=== PATIENT | male | born 1945 | race Caucasian/White ===

== ENCOUNTER 2025-03-01 09:34 | Outpatient (AMB) | payer OTHER, SELFPAY ==
[2025-03-01 10:14] VITALS: BP 136/60; PULSE 59; TEMP 36.6; O2SAT 97; BMI 30.8
--- NOTE | 2025-03-01 10:14 | AM.OFFWIN_ITS ---
Intake Vital Signs 03/01/25 10:14 Height 5 ft 5 in Weight 185 lb BMI 30.8 BP 136/60 Blood Pressure Location Lt brachial Position Sitting Pulse 59 Pulse Source Pulse Oximeter Temp 97.9 F Temp Source Oral Pulse Oximetry (%) 97 Oxygen Delivery Method Room Air Intake Visit Reasons: BANDER HAND ?LT eye infection Intake Note: presents with left eye redness, weeping, crusted for 4-5 days Allergies lisinopril Adverse Reaction (Mild, Verified 03/01/25 10:15) dry cough Medication List - Last Reconciled 03/01/25 by Thea Nick MD atorvastatin 20 mg PO DAILY coenzyme Q10 100 mg PO DAILY doxazosin mg PO finasteride 5 mg PO DAILY levetiracetam 500 mg PO BID losartan 100 mg PO DAILY metoprolol succinate ER 100 mg PO DAILY rivaroxaban (Xarelto) 20 mg PO DAILY turmeric mg PO HPI BANDER HAND ?LT eye infection HPI Details History - The patient is an 79-year-old male pre senting with conjunctivitis and dermatitis symptoms. - Patient reports left eye redness and d ischarge progressively worsening over three to four days, with no inciting event identified. - Patient denies any other underlying ey e conditions, apart from the current conjunctivitis symptoms. - Both ears are affected by a rash that becomes crusty; the patient relates the onset to several weeks before the visit. - Patient has a history of eczema when l iving in [place] about six or seven years ago and was advised by a superintendent electric power to use Cetaphil soap and Head & Shoulders shampoo. - Current complaints include the rash on both ears, potentially linked to possible contact dermatitis or allergies. - Patient has hearing aids and confirms obtaining new aids four years ago; no recent changes have been reported. Medical History: - Eczema history, managed with Cetaphil soap and Head & Shoulders shampoo. - Seborrheic dermatitis, managed with He ad & Shoulders initially, and advised to use Nizoral shampoo. Social History: - Patient uses hearing aids, obtained fo ur years ago, for auditory assistance. Problem List - Conjunctivitis - Dermatitis - Eczema - Seborrheic Dermatitis Patient Instructions - Use prescribed steroid cream on ears a t night when hearing aids are removed. - Apply a small amount inside the ear us ing a fingertip. - Use Nizoral shampoo instead of Head & Shoulders for scalp condition. - Obtain prescribed eye drops and cream from the pharmacy. Review of Systems - General: No fever no chills - Neurological: No headaches no dizziness - Ear nose throat: No sore throat no hearing difficulty no ear pain - Cardiovascular: No syncope, no chest pain, no palpitations - Gastrointestinal: No nausea vomiting or diarrhea Physical Exam General: No acute distress HEENT: Conjunctivitis in the left eye MARTHA EOMI, both ears with crusty rash, possibly due to contact dermatitis, hearing aids are in Neck: Supple Respiratory system: Able to talk in full sentences Gastrointestinal: No pain Extremities: No new findings BARIATRIC NURSE: Alert awake oriented x3 Skin: normal turgor Physical Exam Vital Signs: Last Vital Signs Temp 97.9 F 03/01/25 10:14 Pulse 59 03/01/25 10:14 BP 136/60 03/01/25 10:14 Pulse Ox 97 03/01/25 10:14 Oxygen Delivery Method Room Air 03/01/25 10:14 BMI result Body Mass Index 30.8 Assessment & Plan Assessment & Plan (1) Conjunctivitis, left eye: Code(s): H10.9 - Unspecified conjunctivitis (2) Seborrheic dermatitis: Code(s): L21.9 - Seborrheic dermatitis, unspecified Plan History - The patient is an 79-year-old male presenting with conjunctivitis and dermatitis symptoms. - Patient reports left eye redness and discharge progressively worsening over three to four days, with no inciting event identified. - Patient denies any other underlying eye conditions, apart from the current conjunctivitis symptoms. - Both ears are affected by a rash that becomes crusty; the patient relates the onset to several weeks before the visit. - Patient has a history of eczema when living in [place] about six or seven years ago and was advised by a superintendent electric power to use Cetaphil soap and Head & Shoulders shampoo. - Current complaints include the rash on both ears, potentially linked to possible contact dermatitis or allergies. - Patient has hearing aids and confirms obtaining new aids four years ago; no recent changes have been reported. Medical History: - Eczema history, managed with Cetaphil soap and Head & Shoulders shampoo. - Seborrheic dermatitis, managed with Head & Shoulders initially, and advised to use Nizoral shampoo. Social History: - Patient uses hearing aids, obtained four years ago, for auditory assistance. Problem List - Conjunctivitis - Dermatitis - Eczema - Seborrheic Dermatitis Patient Instructions - Use prescribed steroid cream on ears at night when hearing aids are removed. - Apply a small amount inside the ear using a fingertip. - Use Nizoral shampoo instead of Head & Shoulders for scalp condition. - Obtain prescribed eye drops and cream from the pharmacy. Medications: New clobetasol 0.05% 1 appl topical BEDTIME 60 grams 0RF both ears 30 days polymyxin B sulf-trimethoprim 10,000 unit- 1 mg/mL while awake; do not exceed 6 doses in 24 hours 1 drp ophthalmic (eye) Q3H 10 mL 0RF 7 days Coding Level of Care Code New Pt Level 3 (71409) Diagnoses Conjunctivitis, left eye H10.9 Seborrheic dermatitis L21.9
== END 2025-03-01 11:14 | disposition home or self-care (01) ==
PROVIDERS: Visit Provider Internal Medicine
DX: H10.9 Unspecified conjunctivitis (principal); L21.9 Seborrheic dermatitis, unspecified

== ENCOUNTER 2025-04-11 13:01 | Outpatient (AMB) | payer OTHER, SELFPAY ==
--- NOTE | 2025-04-11 13:00 | A.OFFPC_ITS ---
Vital Signs 04/11/25 13:24 04/11/25 17:20 Height 6 ft 0.83 in Weight 184 lb 8 oz BMI 24.5 BP 152/70 H 128/68 Blood Pressure Location Rt femoral Position Sitting Respiration 16 Pulse 57 Pulse Source Pulse Oximeter Temp 98.0 F Temp Source Temporal Artery Scan Pulse Oximetry (%) 97 Oxygen Delivery Method Room Air Intake Visit Reasons: Establish care Trim Stencil Maker Required: No Accompanied by: Self / Same As Patient Allergies lisinopril Adverse Reaction (Mild, Verified 04/11/25 17:20) dry cough Medication List - Last Reconciled 04/11/25 by Mely Casarez PA-C atorvastatin 20 mg PO DAILY coenzyme Q10 100 mg PO DAILY doxazosin mg PO finasteride 5 mg PO DAILY levetiracetam 500 mg PO BID losartan 100 mg PO DAILY metoprolol succinate ER 100 mg PO DAILY rivaroxaban (Xarelto) 20 mg PO DAILY turmeric mg PO Tobacco use date assessed: 04/11/25 Fall risk assessment: No Falls in past year Last assessed Fall Risk: 04/11/25 Dental Screening Dental Screen Date: 04/11/25 Did you have a dental visit in the last 12 months?: No Did you have a dental problem in the last 6 months where you did not have access to dental care?: No Was dental information given to patient?: Patient has dentist HPI Establish care HPI Details The patient is an 80-year-old male presenting for a new patient appointment to establish primary care. The patient has a history of sleep apnea, managed with a CPAP machine, and requires annual doctor visits for CPAP supply discounts. He has hyperlipidemia, treated with atorvastatin, and a coronary artery stent placed due to a blocked artery found during a chemical stress test. The patient experienced seizures eight years ago and is on Keppra for seizure management, advised to continue indefinitely. He has benign prostatic hyperplasia, managed with doxazosin and finasteride, and hypertension managed with losartan and metoprolol. The patient has a history of smoking, having quit 45 years ago, and reports carpal tunnel syndrome, managed with exercises and considering physical therapy. He underwent a hip replacement two years ago and does not require antibiotics for dental procedures. Social History - Housing: Recently moved to be closer t o family, previously lived in [place] and [place]. - Family Status: Has children and grandc billie, moved closer to family at their request. - Substance Use: Former smoker, quit 45 years ago. [facility] Medical History (Updated 04/11/25 @ 17:25 by Mely Casarez PA-C) Preventative health care Carpal tunnel syndrome Hypertension BPH (benign prostatic hyperplasia) Seizure disorder Atypical mole Decreased vision in both eyes Wears glasses Hypercholesteremia LESLY on CPAP Surgical History (Updated 04/11/25 @ 17:25 by Mely Casarez PA-C) Coronary artery disease status post coronary stent insertion Family History Father Alcoholic Mother Smoker Alzheimer's dementia Social History Housing: House Alcohol intake: current Alcohol intake frequency: a few times a month Patient Tobacco Use Status: Former Tobacco user service: Yes Current occupational status: retired Cognitive needs: No Hearing needs: Yes (b/l earing aids) Vision needs: Yes (rx glasses) Questionnaire PHQ-9 Over the last 2 weeks, how often have you been bothered by any of the following problems? 1. Little interest or pleasure in doing things: not at all 2. Feeling down, depressed, or hopeless: not at all 3. Trouble falling or staying asleep, or sleeping too much: not at all 4. Feeling tired or having little energy: not at all 5. Poor appetite or overeating: not at all 6. Feeling bad about yourself - or that you are a failure or have let yourself or your family down: not at all 7. Trouble concentrating on things, such as reading the newspaper or watching television: not at all 8. Moving or speaking so slowly that other people could have noticed. Or the opposite - being so fidgety or restless that you have been moving around a lot more than usual: not at all 9. Thoughts that you would be better off or of hurting yourself in some way: not at all Total score: 0 Depression Screening Interpretation: Negative Depression Screening Done: Yes 10478 - PHQ-9 Billing: Yes Source: Developed by Drs. Narciso Luna, Margoth Ha, Gabriel Montague and colleagues, with an educational ade from [employer]. Thrive Questionnaire Date Thrive assessed: 04/11/25 I am a: Patient What is your living situation today?: I have a steady place to live Within the past 12 months, did the food you bought not last and you didn't have the money to get more?: Never true Within the past 12 months, did you worry whether your food would run out before you got money to buy more?: Never true Do you have trouble paying for medicines?: No Do you have trouble getting transportation to medical appointments?: No Do you have trouble paying your heating and electricity bill?: No Do you have trouble taking care of your child, family member or friend?: No Do you have trouble with day-to-day activities such as bathing, preparing meals, shopping, managing finances, etc.?: No Are you currently unemployed and looking for a job?: No Are you interested in more education?: No Currently or been in a relationship where the following occur: No concerns reported THRIVE Score: 0 AUDIT C Alcohol Use Questionnaire (AUDIT-C) 1. How often do you have a drink containing alcohol?: 2-4 times a month 2. How many drinks containing alcohol do you have on a typical day when you are drinking?: 1 or 2 3. How often do you have six or more drinks on one occasion?: Never Total Score: 2 Score Reviewed/Action Taken: No IRMA-7 AMB Questionnaire IRMA-7 Date IRMA - 7 assessed: 04/11/25 Feeling nervous, anxious, or on edge: 0 = Not at all Not being able to stop or control worryin = Not at all Worrying too much about different things: 0 = Not at all Trouble relaxin = Not at all Being so restless that it is hard to sit still: 0 = Not at all Becoming easily annoyed or irritable: 0 = Not at all Feeling afraid as if something awful might happen: 0 = Not at all Total IRMA-7 score (0-4 normal; 5-9 mild; 10-14 moderate; 15-21 severe): 0 Source: Developed by Drs. Narciso Luna, Margoth Ha, Gabriel Montague and colleagues, with an educational ade from [employer]. IRMA-7 Assessment Billing IRMA-7 Assessment Tool: IRMA-7 Assessment 37703 Review of Systems Const Details: - Cardiovascular: Denies chest pain, no history of heart attack or stroke. - Respiratory: Denies dyspnea, uses CPAP for sleep apnea. - Neurological: Reports history of seizures, denies recent episodes. - Gastrointestinal: Denies black or bloody stools, no unintentional weight loss. - Genitourinary: Denies urinary issues, managed benign prostatic hyperplasia. - Musculoskeletal: Reports carpal tunnel syndrome, no recent hip issues post- replacement. - Dermatological: Reports new skin lesion, seeking dermatology referral. All systems reviewed & are unremarkable except as noted in HPI and below Physical exam (Primary Care) Vital Signs: Last Vital Signs Temp 98.0 F 04/11/25 13:24 Pulse 57 04/11/25 13:24 Resp 16 04/11/25 13:24 BP 152/70 H 04/11/25 13:24 Pulse Ox 97 04/11/25 13:24 Oxygen Delivery Method Room Air 04/11/25 13:24 Care Plan Goal for BP management: <140/90 at Goal BMI result Body Mass Index 24.5 Normal BMI Tobacco/Smoking Status: Tobacco use Status Tobacco use date assessed 04/11/25 04/11/25 13:04 Patient Tobacco Use Status Former Tobacco user 04/11/25 13:29 PHQ-9: PHQ-9 Score PHQ-9: Total score 0 04/11/25 13:04 Depression Screening Interpretation: Negative Thrive Assessment: Date of Thrive Assessment Date Thrive assessed 04/11/25 04/11/25 13:07 Currently or been in a relationship where the following occur: No concerns reported Const Other: Appearance: Alert. Oriented X3. No acute distress. Head: Normal external exam. Normocephalic. Atraumatic. Eyes: Pupils are equal, round, and reactive to light. Extraocular movements intact. Conjunctiva and sclera normal. Eyelids normal. Ears: External auditory canal normal. Tympanic membranes normal. Throat: Pharynx normal. Uvula midline. Moist mucous membranes. Neck: Normal inspection. Neck supple. Full range of motion. No adenopathy. Thyroid Normal. No meningeal signs. No neck mass noted. Cardiovascular: Normal heart rate and rhythm. Heart sound normal. No murmurs noted. Pulses normal throughout. Respiratory: No respiratory distress. Painless inspiration. Breath sounds normal. No wheezes/rales/rhonchi noted. Chest nontender. No accessory muscle usage noted or decreased air movement noted. Abdomen: Soft and nontender. Bowel sounds normal in all 4 quadrants. No distention noted. No organomegaly noted. No visible injury noted. Back: No costovertebral angle tenderness. Full range of motion noted. Skin: Skin warm and dry. Normal skin color. Normal skin turgor. Mole to right upper arm irregular. No additional rashes/lesions/lacerations noted. Extremities: No lower extremity edema. Extremities exhibit normal range of motion. Extremities nontender. Neuro: Oriented X 3. No motor deficit. No sensory deficit. Reflexes normal. Coding Level of Care Code New Pt Level 4 (49827) Complex EM visit Add On G2211 Diagnoses LELSY on CPAP G47.33 Hypercholesteremia E78.00 Coronary artery disease status post coronary stent insertion I25.10; Z95.5 Seizure disorder G40.909 BPH (benign prostatic hyperplasia) N40.0 Hypertension I10 Carpal tunnel syndrome G56.00 [facility] health care Z00.00 Additional Codes PHQ-9 - 64327 - PHQ-9 Billing: Yes ([id number]) IRMA-7 Assessment Billing - IRMA-7 Assessment Tool: IRMA-7 Assessment 52316 ([id number]) Time Spent (min) 55 Assessment & Plan Assessment & Plan (1) LESLY on CPAP: Code(s): G47.33 - Obstructive sleep apnea (adult) (pediatric) Category: Medical Plan: The patient will continue using the CPAP machine and maintain annual doctor visits to ensure discounts on CPAP supplies. A referral to a paper and pulp mill worker has been made for further management and evaluation. (2) Hypercholesteremia: Code(s): E78.00 - Pure hypercholesterolemia, unspecified Category: Medical Plan: The patient is currently on atorvastatin for hyperlipidemia management. Regular monitoring of cholesterol levels will be conducted through blood work. (3) Coronary artery disease status post coronary stent insertion: Code(s): I25.10 - Atherosclerotic heart disease of [place] coronary artery without angina pectoris; Z95.5 - Presence of coronary angioplasty implant and graft Category: Surgical Plan: The patient has a coronary artery stent placed due to a blocked artery discovered during a chemical stress test. Continued use of Xarelto is advised for anticoagulation. (4) Seizure disorder: Code(s): G40.909 - Epilepsy, unspecified, not intractable, without status epilepticus Category: Medical Plan: The patient is on Keppra for seizure management and has been advised to continue this medication indefinitely. (5) BPH (benign prostatic hyperplasia): Code(s): N40.0 - Benign prostatic hyperplasia without lower urinary tract symptoms Category: Medical Plan: The patient is on doxazosin and finasteride for the management of benign prostatic hyperplasia. (6) Hypertension: Code(s): I10 - Essential (primary) hypertension Category: Medical Plan: The patient is on losartan and metoprolol for hypertension management. Blood pressure will be monitored regularly, and adjustments to medication will be made as necessary. (7) Carpal tunnel syndrome: Code(s): G56.00 - Carpal tunnel syndrome, unspecified upper limb Category: Medical Plan: The patient reports carpal tunnel syndrome and has attempted using a wrist brace without significant relief. Physical therapy and exercises are recommended for symptom management. (8) Preventative health care: Code(s): Z00.00 - Encounter for general adult medical examination without abnormal findi ngs Category: Medical Plan: Blood work including CBC, CMP, cholesterol panel, liver panel, magnesium, v itamin B12, vitamin D, PSA, and thyroid function test has been ordered. Referrals to a paper and pulp mill worker and solar design engineer have been made for further evaluation and management. Plan Plan Patient was informed and verbally consented to the use of an ambient scribe for clinic note documentation during this visit. 1. Sleep Apnea The patient will continue using the CPAP machine and maintain annual doctor visits to ensure discounts on CPAP supplies. A referral to a paper and pulp mill worker has been made for further management and evaluation. 2. Hyperlipidemia The patient is currently on atorvastatin for hyperlipidemia management. Regular monitoring of cholesterol levels will be conducted through blood work. 3. Coronary Artery Disease With Stent Placement The patient has a coronary artery stent placed due to a blocked artery discovered during a chemical stress test. Continued use of Xarelto is advised for anticoagulation. 4. Seizure Disorder The patient is on Keppra for seizure management and has been advised to continue this medication indefinitely. 5. Benign Prostatic Hyperplasia The patient is on doxazosin and finasteride for the management of benign prostatic hyperplasia. 6. Hypertension The patient is on losartan and metoprolol for hypertension management. Blood pressure will be monitored regularly, and adjustments to medication will be made as necessary. 7. Carpal Tunnel Syndrome The patient reports carpal tunnel syndrome and has attempted using a wrist brace without significant relief. Physical therapy and exercises are recommended for symptom management. 8. Preventative Care Blood work including CBC, CMP, cholesterol panel, liver panel, magnesium, vitamin B12, vitamin D, PSA, and thyroid function test has been ordered. Referrals to a paper and pulp mill worker and solar design engineer have been made for further evaluation and management. I discussed with the patient the importance of continuing CPAP therapy for sleep apnea and maintaining regular follow-ups with a paper and pulp mill worker. We reviewed his medication regimen for hyperlipidemia, coronary artery disease, and hypertension, emphasizing the need for regular monitoring and adherence. I advised the patient to continue Keppra for seizure management and discussed the potential need for physical therapy for carpal tunnel syndrome. Preventative care measures, including blood work and specialist referrals, were outlined to ensure comprehensive health management. Orders: Orders C Reactive Protein Today Z00.00 - Encounter for general adult medical examination without abnormal findings Lipid Panel Today Z00.00 - Encounter for general adult medical examination without abnormal findings Magnesium Today Z00.00 - Encounter for general adult medical examination without abnormal findings Vitamin B12 and Folate Today Z00.00 - Encounter for general adult medical examination without abnormal findings Vitamin D 25-OH Total Today Z00.00 - Encounter for general adult medical examination without abnormal findings PSA,Total (Free>4and<10) Today Z00.00 - Encounter for general adult medical examination without abnormal findings Zinc Today Z00.00 - Encounter for general adult medical examination without abnormal findings Complete Blood Count Auto Diff Today Z00.00 - Encounter for general adult medical examination without abnormal findings Comprehensive [place]. Panel Fast Today Z00.00 - Encounter for general adult medical examination without abnormal findings Hemoglobin A1c Today Z00.00 - Encounter for general adult medical examination without abnormal findings Liver Panel Today Z00.00 - Encounter for general adult medical examination without abnormal findings TSH reflex Free T4 Today Z00.00 - Encounter for general adult medical examination without abnormal findings Vitamin B1 Today Z00.00 - Encounter for general adult medical examination without abnormal findings Referrals Pulmonology Referral G47.33 - Obstructive sleep apnea (adult) (pediatric) Dermatology Referral D22.9 - Melanocytic nevi, unspecified Ophthalmology Referral H54.3 - Unqualified visual loss, both eyes, Z97.3 - Presence of spectacles and contact lenses Patient Instructions: - Continue using CPAP machine and attend annual doctor visits for supply discounts. - Take atorvastatin as prescribed and monitor cholesterol levels regularly. - Continue Keppra for seizure management as advised. - Follow up with paper and pulp mill worker and solar design engineer as referred. - Complete blood work as ordered, ensuring fasting before the test. - Consider physical therapy for carpal tunnel syndrome management.
[2025-04-11 13:24] VITALS: BP 152/70; PULSE 57; RESP 16; TEMP 36.7; O2SAT 97; BMI 24.5
[2025-04-11 17:20] VITALS: BP 128/68
== END 2025-04-11 14:04 | disposition home or self-care (01) ==
LOC: HO.HMCSH 13:01
PROVIDERS: Visit Provider Physician Assistant Medical
DX: G47.33 Obstructive sleep apnea (adult) (pediatric) (principal); E78.00 Pure hypercholesterolemia, unspecified; I25.10 Atherosclerotic heart disease of native coronary artery without angina pectoris; Z95.5 Presence of coronary angioplasty implant and graft; G40.909 Epilepsy, unspecified, not intractable, without status epilepticus; N40.0 Benign prostatic hyperplasia without lower urinary tract symptoms; I10 Essential (primary) hypertension; G56.00 Carpal tunnel syndrome, unspecified upper limb; Z00.00 Encounter for general adult medical examination without abnormal findings

== ENCOUNTER → 2025-04-11 13:01 | Outpatient (BNVA) | payer OTHER, SELFPAY | PROVIDERS: Visit Provider Physician Assistant Medical | DX: Z00.00 Encounter for general adult medical examination without abnormal findings (principal); G47.33 Obstructive sleep apnea (adult) (pediatric); E78.5 Hyperlipidemia, unspecified; G40.909 Epilepsy, unspecified, not intractable, without status epilepticus; N40.0 Benign prostatic hyperplasia without lower urinary tract symptoms; E78.00 Pure hypercholesterolemia, unspecified; I25.10 Atherosclerotic heart disease of native coronary artery without angina pectoris; I10 Essential (primary) hypertension; G56.00 Carpal tunnel syndrome, unspecified upper limb; Z99.89 Dependence on other enabling machines and devices; Z95.5 Presence of coronary angioplasty implant and graft; Z87.891 Personal history of nicotine dependence; Z79.899 Other long term (current) drug therapy | CPT/HCPCS: 96127 ==

== ENCOUNTER 2025-06-18 08:20 | Outpatient (REF) | payer OTHER, SELFPAY ==
[2025-06-18 10:36] LABS: MANUAL DIFF FLAG NO
[2025-06-18 10:42] LABS: Hematocrit 39.5 % (42.0-52.0); Hemoglobin 13.1 g/dl (14.0-18.0); Imm Gran Abs Auto 0.02 X10*3/uL (0.00-0.03); Imm Gran Pct Auto 0.3 % (0.0-0.4); Lymphocytes Absolute Auto 1.5 X10*3/uL (1.2-4.9); Mean Corpuscular HGB Conc 33.2 g/dl (31.0-36.0); Mean Corpuscular Hemoglobin 29.8 pg (27.0-33.0); Mean Corpuscular Volume 89.8 fL (80.0-98.0); NRBC Abs Auto 0.000 X10*3/uL (0.0-0.012); NRBC Pct Auto 0.0 /100WBC (0.0-0.2); Platelet Count 247 X10*3/uL (160-400); Red Blood Count 4.40 X10*6/uL (4.60-5.80); White Blood Count 6.9 X10*3/uL (4.8-10.8)
[2025-06-18 11:10] LABS: Anion Gap 9 (12-20); Blood Urea Nitrogen 13 mg/dL (9-16); Carbon Dioxide 25 mmol/L (22-29); Chloride 112 mmol/L (96-108); Potassium 4.5 mmol/L (3.3-5.1); Sodium 141 mmol/L (135-145)
[2025-06-18 11:11] LABS: Alanine Aminotransferase 25 U/L (0-40); Albumin Level 4.2 g/dL (3.5-5.0); Alkaline Phosphatase 88 U/L (39-117); Aspartate Amino Transferase 32 U/L (5-37); Calcium 9.3 mg/dL (8.4-10.2); Cholesterol 103 mg/dL (<200); Estimated Glomerular Filt Rate > 60; HDL Cholesterol 45 mg/dL (>40); Magnesium 2.0 mg/dL (1.6-2.6); Total Protein 7.2 g/dL (6.5-8.0); Triglycerides 59 mg/dL (<150)
[2025-06-18 11:36] LABS: Folate 7.5 ng/mL (> or = 4.0); Vitamin B12 720 pg/mL (200-900)
[2025-06-18 11:39] LABS: PSA,Total (Free>4and<10) 2.25 ng/mL (0.00-4.00)
== END 2025-06-18 08:21 | disposition home or self-care (01) ==
LOC: HO.HMGCLDS 08:20
PROVIDERS: PCP Internal Medicine; Visit Provider Physician Assistant Medical
DX: Z00.00 Encounter for general adult medical examination without abnormal findings (principal); Z12.5 Encounter for screening for malignant neoplasm of prostate; Z13.29 Encounter for screening for other suspected endocrine disorder; Z13.1 Encounter for screening for diabetes mellitus; Z13.6 Encounter for screening for cardiovascular disorders
CPT/HCPCS: 36415; 80053; 80061; 80076; 82248; 82306; 82607; 82746; 83036; 83735; 84153; 84425; 84443; 84630; 85025; 86140

== ENCOUNTER 2025-06-24 14:05 | Outpatient (AMB) | payer OTHER, SELFPAY ==
[2025-06-24 14:12] VITALS: BP 158/64; PULSE 61; O2SAT 96; BMI 30.6
--- NOTE | 2025-06-24 14:12 | A.OFFVIS_ITS ---
Vital Signs 06/24/25 14:12 Height 5 ft 5 in Weight 184 lb 1.376 oz BMI 30.6 BP 158/64 H Blood Pressure Location Rt brachial Position Sitting Pulse 61 Pulse Source Pulse Oximeter Pulse Oximetry (%) 96 Oxygen Delivery Method Room Air Intake Visit Reasons: Obstructive sleep apnea Allergies lisinopril Adverse Reaction (Mild, Verified 06/24/25 14:15) dry cough HPI HPI Obstructive sleep apnea: Details: Deyvi is a pleasnt 80 year old male, former 20 pack year smoker, quit 40+ years ago with underlying LESLY on CPAP. He was referred by PCP for management of LESLY since moving from [place]. He has been using a CPAP machine since January 2018, with consistent usage every night for more than four hours and benefitting from use. The patient reports a significant reduction in apnea events reportedly 122 per night to less than 2 per hour since starting CPAP therapy. 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 A sleep study confirmed severe sleep apnea, unknown degree of nocturnal hypoxemia. Reviewed [facility] [facility] for the last 90 days which revealed moderate leaking, AHI <2 and >4 hours of nightly use. He currently uses nasal pillows. Patient is not established with a local DME at this time. The patient has a history of smoking, having quit 45 years ago after smoking a pack a day for approximately 20 years. He reports no current respiratory issues aside from symptoms related to a recent cold. Denies prior h/o asthma/COPD. [facility] Medical History (Updated 06/24/25 @ 11:10 by Mely Casarez PA-C) Thiamine deficiency Preventative health care Carpal tunnel syndrome Hypertension BPH (benign prostatic hyperplasia) Seizure disorder Atypical mole Decreased vision in both eyes Wears glasses Hypercholesteremia LESLY on CPAP Surgical History (Updated 04/11/25 @ 17:25 by Mely Casarez PA-C) Coronary artery disease status post coronary stent insertion Family History Father Alcoholic Mother Smoker Alzheimer's dementia Social History Housing: House Alcohol intake: current Alcohol intake frequency: a few times a month Patient Tobacco Use Status: Former Tobacco user service: Yes Current occupational status: retired Cognitive needs: No Hearing needs: Yes (b/l earing aids) Vision needs: Yes (rx glasses) Review of Systems Const Denies chills, Denies excessive sweating, Denies fever(s), Denies headache(s) and Denies night sweats Eyes Denies dry eyes, Denies irritation and Denies itchy eyes ENT Reports Normal hearing present, Denies headache(s), Denies nasal congestion, Denies nasal discharge, Denies post nasal drip and Denies sore throat Card Denies chest pain, Denies chest pain at rest, Denies chest pain with activity, Denies claudication, Denies leg edema, Denies dyspnea, Denies dyspnea on exertion, Denies orthopnea and Denies paroxysmal nocturnal dyspnea Resp Denies chest congestion, Denies cough, Denies excessive phlegm production, Denies pain on inspiration, Denies pain with cough, Denies dyspnea, Denies dyspnea on exertion, Denies stridor and Denies wheezing Musc Denies myalgias Neuro Reports Normal hearing present and Denies headache(s) Endo Denies excessive sweating Raymundo/Lymph Denies lymphadenopathy Aller/Immun Denies itchy eyes, Denies seasonal rhinorrhea and Denies wheezing Physical Exam Vital Signs: Last Vital Signs Pulse 61 06/24/25 14:12 BP 158/64 H 06/24/25 14:12 Pulse Ox 96 06/24/25 14:12 Oxygen Delivery Method Room Air 06/24/25 14:12 BMI result Body Mass Index 30.6 Const General: cooperative, healthy appearing, comfortable, no acute distress, well developed and alert Orientation/consciousness: patient oriented x3 Limitations: no limitations HEENT Head: Yes normal to inspection, Yes normocephalic and Yes atraumatic Ears: hearing grossly normal bilaterally and external ears normal Eyes General: appearance normal, both eyes and all related structures Eyelids: Yes eyelids normal Sclerae: sclerae normal EOM: EOMs intact bilaterally Neck Neck: Yes normal visual inspection and Yes no lymphadenopathy Lymphatic: no lymphadenopathy noted Chest Chest palpation & inspection: normal inspection of the chest Resp Effort & Inspection: normal respiratory effort, able to speak in complete sentences, no audible wheezes, no cough, no stridor, not tachypneic, no tripod positioning and no use of accessory muscles Auscultation: clear to auscultation bilaterally Cardio Jugular venous distension: no JVD Rate: regular rate Rhythm: regular rhythm Skin Other: warm, dry General skin exam: no rashes or lesions noted Neuro General: patient oriented x3 Cranial nerves: Yes Normal hearing present Cognition (Neuro): normal cognition Gait exam (Neuro): Normal gait present Extrem General: Yes normal to inspection, Yes capillary refill normal, Yes no clubbing, cyanosis or edema and Yes no pedal edema Psych Appearance: grossly normal and well kempt Speech and movement: Normal speech and movement present and Clear speech present Affect: normal affect Attitude: cooperative Thought process: Normal thought process present Thought content: Normal thought content present Insight: Good insight present (Psych) Judgement: Good judgement present (Psych) Assessment & Plan Assessment & Plan (1) LESLY on CPAP: Code(s): G47.33 - Obstructive sleep apnea (adult) (pediatric) Category: Medical Plan The patient will continue using CPAP therapy, which has effectively reduced apnea events to less than 2 per hour. A home sleep study may be conducted to reestablish the diagnosis and assess current oxygen levels during sleep, if unable to obtain prior documentation, including initial PSG. Patient agreeable to reach out to prior PCP to obtain prior records. The patient is advised to bring his CPAP machine to the next visit for evaluation of settings and pressure levels. All questions were answered and patient is in agreement of plan. Will follow up in 6-8 weeks or sooner if needed. Coding Level of Care Code New Pt Level 3 (53768) Diagnoses LESLY on CPAP G47.33
== END 2025-06-24 14:42 | disposition home or self-care (01) ==
LOC: HO.HPS 14:06
PROVIDERS: PCP Physician Assistant Medical; Referring Provider Physician Assistant Medical; Visit Provider Nurse Practitioner Family
DX: G47.33 Obstructive sleep apnea (adult) (pediatric) (principal)
CPT/HCPCS: 99203